=== PATIENT | male | born 2000 | race Caucasian/White ===

== ENCOUNTER 2022-07-19 09:56 | Emergency (ER) | payer MEDICAID, OTHER ==
[~2022-07-19] VITALS: Ht 177.8 cm; Wt 77.1 kg
--- NOTE | 2022-07-19 11:07 | ED Cardiac General ---
History of Present Illness General Chief Complaint: Cardiac/General Problems Stated Complaint: HEART RATE HIGH SOB Nursing Triage Note: PT AMB TO [facility] 6 WITH COMPLAINT OF SOA, FAST HR. STATES HAS BEEN GOING ON FOR THE LAST 2 MONTHS. FELT LIKE IT HAS WORSENED RECENTLY AND THAT WAS WHAT PROMPTED HIM TO COME TO ER TODAY. Source: patient (GILDARDOPETRONASHELBIE Nash) History of Present Illness Date Seen by Provider: Jul 19, 2022 Time Seen by Provider: 10:20 Initial Comments 22yo M with h/o asthma and hypoglycemia presents to the ED with c/o episodic increased heart rate, CP, and SOA that has worsened over the past 2 months. Pt states that following a COVID infection 1 year, he has been experiencing periods in which his heart races and he feels SOA, lightheaded, dizzy, and shaking of his extremities. Pt states that these episodes occur 1-2x daily and last anywhere from 2-15minutes. Pt states that there are no triggers to his episodes and they happen randomly throughout the day. Pt states that symptoms worsened ~2months ago after a short flu-like illness. Today, pt experienced an episode while in the shower and began to feel lightheaded and dizzy as well as medial CP that was sharp then "numb". Pt rated the pain a 6/10 at that time. Pt checked his heart rate after sitting down for a few minutes and it was 112, which prompted him to come to the ED. Pt states that exertion and using his rescue inhaler makes his symptoms worse and denies episodes being similar to his asthma attacks. Pt denies anything making symptoms better and states that he normally needs to lay down and "wait out" symptoms. Pt has no personal cardiac history or family hx of sudden cardiac or arrhythmias. Pt does not drink caffeine, us e pre-workout, or any other stimulants. Pt denies current CP, fevers, chills, nausea, vomiting, diarrhea, blood in stool, hematuria, cough, or JUNG. (SHELBIE ARREAGA) Allergies and Home Medications Allergies Coded Allergies: No Known Drug Allergies (Unverified , 07/19/22) Patient Home Medication List Home Medication List Reviewed: Yes (SHELBIE ARREAGA) Review of Systems Review of Systems Constitutional: No chills, No diaphoresis; dizziness; No fever EENTM: No Blurred Vision, No Double Vision Respiratory: Denies Cough; Shortness of Air Cardiovascular: Chest Pain, Lightheadedness, Palpitations Gastrointestinal: Denies Abdominal Pain, Denies Diarrhea, Denies Nausea, Denies Vomiting Genitourinary: Denies Burning, Denies Hematuria Musculoskeletal: No back pain, No joint pain Skin: No change in color, No change in hair/nails Psychiatric/Neurological: Denies Anxiety, Denies Headache Endocrine: Denies Excessive Sweating, Denies Intolerance to Cold, Denies Intolerance to Heat Hematologic/Lymphatic: No Symptoms Reported (SHELBIE ARREAGA) Past Tmdnsaj-Lpmhbe-Rsilwy Hx Patient Social History Tobacco Use?: No Use of E-Cig and/or Vaping dev: Yes E-Cig or Vaping type used: Nicotine Use of E-Cig and/or Vaping Chris: Former User (quit 1 yr ago; started using nicotine pouches x12 daily for the past 3 months) Substance use?: Yes Substance type: Marijuana (haven't smoked in 1 yr) Alcohol Use?: Yes Alcohol type: Beer Alcohol Frequency: Several times a month Pt feels they are or have been: No (SHELBIE ARREAGA) Past Medical History Surgeries: Yes Appendectomy, Tonsillectomy Respiratory: Yes Asthma Cardiac: No Neurological: Yes Headaches /Migraines Genitourinary: No Gastrointestinal: No Musculoskeletal: No Endocrine: Yes (hypoglycemia) HEENT: No Cancer: No Psychosocial: No Integumentary: Yes Eczema (SHELBIE ARREAGA) Family Medical History Heart Disease (Grandmother), Cancer (maternal grandmother, pt is unsure what kind) (SHELBIE ARREAGA) Physical Exam Vital Signs Vital Signs - First Documented 07/19/22 10:00 Temp 36.1 Pulse 102 Resp 20 B/P (MAP) 129/94 (106) Pulse Ox 97 O2 Delivery Room Air (DHARA,CRISTO Sammy DO) Vital Signs Capillary Refill : Less Than 3 Seconds (SHELBIE ARREAGA) Height, Weight, BMI Height: '" Weight: lbs. oz. kg; 24.00 BMI Method: General Appearance: No Apparent Distress, WD/WN HEENT: PERRL/EOMI, Moist Mucous Membranes Respiratory: Chest Non Tender, Lungs Clear, Normal Breath Sounds, No Accessory Muscle Use, No Respiratory Distress Cardiovascular: No Murmur, Tachycardia Gastrointestinal: Non Tender, Soft Extremity: No Calf Tenderness, No Pedal Edema Neurologic/Psychiatric: Alert, Oriented x3 Skin: Normal Color, Warm/Dry (SHELBIE ARREAGA) Progress/Results/Core Measures Results/Orders Lab Results Laboratory Tests Test 07/19/22 11:29 Range/Units White Blood Count 6.6 4.3-11.0 10^3/uL Red Blood Count 5.98 H 4.30-5.52 10^6/uL Hemoglobin 16.4 13.3-17.7 g/dL Hematocrit 46 40-54 % Mean Corpuscular Volume 77 L 80-99 fL Mean Corpuscular Hemoglobin 27 25-34 pg Mean Corpuscular Hemoglobin Concent 36 32-36 g/dL Red Cell Distribution Width 12.3 10.0-14.5 % Platelet Count 273 130-400 10^3/uL Mean Platelet Volume 10.1 9.0-12.2 fL Immature Granulocyte % (Auto) 0 % Neutrophils (%) (Auto) 59 42-75 % Lymphocytes (%) (Auto) 31 12-44 % Monocytes (%) (Auto) 9 0-12 % Eosinophils (%) (Auto) 1 0-10 % Basophils (%) (Auto) 1 0-10 % Neutrophils # (Auto) 3.9 1.8-7.8 10^3/uL Lymphocytes # (Auto) 2.1 1.0-4.0 10^3/uL Monocytes # (Auto) 0.6 0.0-1.0 10^3/uL Eosinophils # (Auto) 0.0 0.0-0.3 10^3/uL Basophils # (Auto) 0.1 0.0-0.1 10^3/uL Immature Granulocyte # (Auto) 0.0 0.0-0.1 10^3/uL Sodium Level 140 135-145 MMOL/L Potassium Level 3.9 3.6-5.0 MMOL/L Chloride Level 108 H 98-107 MMOL/L Carbon Dioxide Level 21 21-32 MMOL/L Anion Gap 11 5-14 MMOL/L Blood Urea Nitrogen 9 7-18 MG/DL Creatinine 0.78 0.60-1.30 MG/DL Estimat Glomerular Filtration Rate 130 BUN/Creatinine Ratio 12 Glucose Level 93 70-105 MG/DL Calcium Level 9.5 8.5-10.1 MG/DL Magnesium Level 1.9 1.6-2.4 MG/DL Troponin I < 0.028 <0.028 NG/ML (CRISTO JULES DO) My Orders Orders - CRISTO JULES DO Ekg Tracing (07/19/22 10:46) Basic Metabolic Panel (07/19/22 10:49) Magnesium (07/19/22 10:49) Cbc With Automated Diff (07/19/22 10:49) Troponin I [place] (07/19/22 10:50) Chest 1 View, Ap/Pa Only (07/19/22 10:56) (CRISTO JULES DO) Vital Signs/I&O 07/19/22 10:00 Temp 36.1 Pulse 102 Resp 20 B/P (MAP) 129/94 (106) Pulse Ox 97 O2 Delivery Room Air (CRISTO JULES DO) Blood Pressure Mean: 106 Departure Communication (Admissions) Patient is hemodynamically stable with a negative work-up here. He has some mild sinus tachycardia that resolved spontaneously and only lasted a few minutes after he left the room. His blood pressures have been stable. He is not having any more chest pain or shortness of breath while he is here. No dizziness here. No evidence for infectious process at this time. Exam is reassuring. EKG is nonischemic no change in PA QTC. No family history of sudden cardiac . He will be set up for an event monitor as an outpatient with results of the K provider on-call, Dr. Gilmore. He will schedule follow-up for discussion of these results. He is discharged home in stable condition with strict return precautions. Chest x-ray is negative. No evidence for anemia. Sodium and calcium are normal. Potassium is normal. All labs individually reviewed by myself are normal. (CRISTO JULES DO) Impression Primary Impression: Palpitations Disposition: 01 HOME, SELF-CARE Condition: Stable Departure-Patient Inst. Referrals: IVORY GILMORE DO Patient Instructions: Palpitations Add. Discharge Instructions: You were seen in the emergency department for palpitations and dizziness. No emergent medical conditions identified for your symptoms today however I have set you up for an event monitor as an outpatient. You will be notified when and where to pick this up and they will further instruct you on its use. This will be reviewed by one of our knurling machine tender and the results will know to Dr. Gilmore. Please call the [facility] clinic at [facility] to schedule a follow-up appointment and to review these results. Return to the emergency department immediately for any severe chest pain that is lasting longer than usual or if your symptoms change in any way concerning to you. All discharge instructions reviewed with patient and/or family. Voiced understanding. SHELBIE ARREAGA Jul 19, 2022 11:07 CRISTO JULES DO Jul 19, 2022 12:11
--- NOTE | 2022-07-19 11:32 | Diagnostic Imaging Report ---
INDICATION: Respiratory, tachycardia, palpitations over the past 2 months.. TECHNIQUE: Single view chest 11:11 AM. CORRELATION STUDY: None FINDINGS: The heart size, mediastinal configuration and pulmonary vascularity are within normal limits. The lungs are clear with no consolidating infiltrate. Small calcified granuloma right costophrenic angle and right lung apex. There is no significant effusion or pneumothorax. IMPRESSION: 1. Negative appearing single view chest. Dictated by: Dictated on workstation # [id number]
[2022-07-19 11:41] LABS: BASOPHILS # (AUTO) 0.1 10^3/uL (0.0-0.1); BASOPHILS % (AUTO) 1 % (0-10); EOSINOPHILS % (AUTO) 1 % (0-10); HEMATOCRIT 46 % (40-54); HEMOGLOBIN 16.4 g/dL (13.3-17.7); LYMPHOCYTES # (AUTO) 2.1 10^3/uL (1.0-4.0); LYMPHOCYTES % (AUTO) 31 % (12-44); MEAN CORPUSCULAR HEMOGLOBIN 27 pg (25-34); MEAN CORPUSCULAR HGB CONC 36 g/dL (32-36); MEAN CORPUSCULAR VOLUME 77 fL (80-99); MEAN PLATELET VOLUME 10.1 fL (9.0-12.2); MONOCYTES # (AUTO) 0.6 10^3/uL (0.0-1.0); MONOCYTES % (AUTO) 9 % (0-12); NEUTROPHILS # (AUTO) 3.9 10^3/uL (1.8-7.8); NEUTROPHILS % (AUTO) 59 % (42-75); PLATELET COUNT 273 10^3/uL (130-400); WHITE BLOOD COUNT 6.6 10^3/uL (4.3-11.0)
[2022-07-19 11:51] LABS: CHLORIDE 108 MMOL/L (98-107); POTASSIUM 3.9 MMOL/L (3.6-5.0); SODIUM 140 MMOL/L (135-145)
[2022-07-19 11:52] LABS: CALCIUM 9.5 MG/DL (8.5-10.1); GLUCOSE 93 MG/DL (70-105)
[2022-07-19 11:54] LABS: CARBON DIOXIDE 21 MMOL/L (21-32)
[2022-07-19 11:56] LABS: CREATININE SERUM 0.78 MG/DL (0.60-1.30); GFR ESTIMATED 130
[2022-07-19 11:57] LABS: BUN/CREATININE RATIO 12
[2022-07-19 11:58] LABS: MAGNESIUM 1.9 MG/DL (1.6-2.4)
[2022-07-19 12:25] VITALS: BP 120/71
== END 2022-07-19 12:25 | disposition home or self-care (01) ==
LOC: ER 09:58
DX: R00.2 Palpitations (principal); F17.290 Nicotine dependence, other tobacco product, uncomplicated; Z86.16 Personal history of COVID-19
CPT/HCPCS: 29130; 36415; 71045; 80048; 83735; 84484; 85025; 93005